=== PATIENT | male | born 1960 | race Caucasian/White ===

== ENCOUNTER 2019-02-18 07:50 | Day surgery (SDC) | payer BC ==
[2019-02-17 12:22] LABS: BASOPHILS % (AUTO) 0.4 % (0.0-5.0); EOSINOPHILS % (AUTO) 2.1 % (0.0-8.0); HEMATOCRIT 44.4 % (36-48); LYMPHOCYTES % (AUTO) 24.5 % (21.0-51.0); MEAN CORPUSCULAR HEMOGLOBIN 31.5 pg (27.0-33.0); MEAN CORPUSCULAR HGB CONC 34.2 g/dL (32.0-36.0); MEAN CORPUSCULAR VOLUME 91.9 fL (79-99); MONOCYTES % (AUTO) 8.6 % (3.0-13.0); NEUTROPHILS % (AUTO) 64.4 % (40.0-77.0); PLATELET COUNT (AUTO) 223 K/uL (130-400); RED BLOOD CELL COUNT(AUTO) 4.83 MIL/uL (4.00-5.50); RED CELL DISTRIBUTION WIDTH 13.4 % (11.0-15.5); WHITE BLOOD COUNT (AUTO) 10.3 K/uL (4.8-10.8)
[2019-02-17 12:32] LABS: CREATININE 1.4 mg/dL (0.5-1.5); POTASSIUM 5.9 mmol/L (3.5-5.1)
[2019-02-17 12:36] LABS: INR 1.11 (0.85-1.15); PARTIAL THROMBOPLASTIN TIME 27.5 SEC (26.3-35.5); PROTHROMBIN TIME 11.6 SEC (9.6-11.6)
[2019-02-17 12:47] VITALS: BP 102/71
--- NOTE | 2019-02-17 13:53 | NUR ---
LABS INFORMED DR. VILLA OF ABNORMAL POTASSIUM. REPEAT POTASSIUM ON AM OF PROCEDURE.
[2019-02-18] VITALS (12 sets, daily range): BP systolic 92–115; BP diastolic 57–82
[~2019-02-18] VITALS: Ht 177.8 cm; Wt 95.3 kg
[~2019-02-18 07:50] MED LIST: APIX5TAB PO; DRON400T2 PO; LOSA50TA64 PO; METF-446 PO; METO100T14 PO; ROSU20TA31 PO; SPIR50TA5 PO
[2019-02-18] MEDS ORDERED: PROPOFOL 10 MG/ML 20ML VIAL IV ONE (08:41)
[2019-02-18] MEDS ORDERED: ATROPINE SULFATE 0.1 MG/ML 10 ML SYG IVP ONE (08:42)
[2019-02-18] MEDS ORDERED: SUCCINYLCHOLINE 200MG/10ML SYR ONE (08:42)
[2019-02-18] MEDS ORDERED: DULA0.75 SQ (08:58)
== END 2019-02-18 10:15 | disposition home or self-care (01) ==
LOC: DAH 07:50 → EDSEX 11:00
PROVIDERS: ATTEND Internal Medicine Cardiovascular Disease
DX: I48.19 Other persistent atrial fibrillation (principal); I25.10 Atherosclerotic heart disease of native coronary artery without angina pectoris; I10 Essential (primary) hypertension; E11.9 Type 2 diabetes mellitus without complications; E66.9 Obesity, unspecified; Z88.8 Allergy status to other drugs, medicaments and biological substances; Z79.01 Long term (current) use of anticoagulants; Z79.899 Other long term (current) drug therapy; Z68.30 Body mass index [BMI] 30.0-30.9, adult; Z82.49 Family history of ischemic heart disease and other diseases of the circulatory system
CPT/HCPCS: 36415 ×2; 80048; 82948 ×2; 84132; 85025; 85610; 85730; 92960; 93005 ×2; A4215; A4216; A4221; A4222; A4223 ×3; A4606; A4615; A4663; J0330; J0461; J2704; J7030

== ENCOUNTER → 2022-11-05 | Outpatient (CLI) | payer BC ==
[~2022-11-05] MED LIST changes: -DRON400T2 PO; +DRON400T7 PO; +DULA0.75 SQ; -ROSU20TA31 PO; +ROSU20TA73 PO
[2022-11-05 12:32] LABS: CREATININE 1.2 mg/dL (0.5-1.5)
== END | disposition home or self-care (01) ==
LOC: LAB 09:56
PROVIDERS: ATTEND Internal Medicine Cardiovascular Disease
DX: I48.0 Paroxysmal atrial fibrillation (principal)
CPT/HCPCS: 36415; 82565; 84520

== ENCOUNTER → 2022-11-19 | Outpatient (CLI) | payer BC ==
[~2022-11-19] MED LIST changes: +IOHEXOL 350 MG/ML 100ML INFUS..BTL IV ONE
== END | disposition home or self-care (01) ==
LOC: RAH 07:33
PROVIDERS: ATTEND Internal Medicine Cardiovascular Disease
DX: I25.10 Atherosclerotic heart disease of native coronary artery without angina pectoris (principal); I48.0 Paroxysmal atrial fibrillation; I70.0 Atherosclerosis of aorta
CPT/HCPCS: 71275; Q9967

== ENCOUNTER 2022-12-09 06:57 | Observation (INO) | payer BC ==
[2022-11-28 09:34] LABS: BASOPHILS # (AUTO) 0.04 K/uL (0.00-0.20); BASOPHILS % (AUTO) 0.5 % (0.0-5.0); EOSINOPHILS # (AUTO) 0.23 K/uL (0.00-0.70); EOSINOPHILS % (AUTO) 2.8 % (0.0-8.0); HEMATOCRIT 42.8 % (42-54); IMMATURE GRANULOCYTE ABSOLUTE 0.04 K/uL (0-1); LYMPHOCYTES # (AUTO) 2.1 K/uL (1.0-4.8); LYMPHOCYTES % (AUTO) 25.7 % (21.0-51.0); MEAN CORPUSCULAR HEMOGLOBIN 30.4 pg (27.0-33.0); MEAN CORPUSCULAR HGB CONC 32.9 g/dL (32.0-36.0); MEAN CORPUSCULAR VOLUME 92.2 fL (79-99); MONOCYTES # (AUTO) 0.8 K/uL (0.1-1.0); MONOCYTES % (AUTO) 9.6 % (3.0-13.0); NEUTROPHILS # (AUTO) 4.9 K/uL (1.8-7.7); NEUTROPHILS % (AUTO) 60.9 % (40.0-77.0); PLATELET COUNT (AUTO) 207 K/uL (130-400); RED BLOOD CELL COUNT(AUTO) 4.64 MIL/uL (4.50-6.20); RED CELL DISTRIBUTION WIDTH 12.2 % (11.0-15.5); WHITE BLOOD COUNT (AUTO) 8.1 K/uL (4.8-10.8)
[2022-11-28 09:44] LABS: INR 0.96 (0.85-1.15); PROTHROMBIN TIME 11.2 SEC (9.6-11.6)
[2022-11-28 09:45] LABS: PARTIAL THROMBOPLASTIN TIME 29.7 SEC (26.3-35.5)
[2022-11-28 09:59] LABS: CREATININE 1.2 mg/dL (0.5-1.5); POTASSIUM 5.2 mmol/L (3.5-5.1)
[2022-11-28 10:18] VITALS: BP 111/71; PULSE 57; RESP 18
[2022-12-09] VITALS (22 sets, daily range): BP systolic 93–133; BP diastolic 66–83; PULSE 57–78; RESP 18–21; O2SAT 95–96
[~2022-12-09] VITALS: Ht 175.3 cm; Wt 93.7 kg
[~2022-12-09 06:57] MED LIST changes: +ASPI-1197 PO; +DAPA5TAB PO; -DULA0.75 SQ; -IOHEXOL 350 MG/ML 100ML INFUS..BTL IV ONE; +LOSA100T59 PO; -LOSA50TA64 PO
[2022-12-09] MEDS ORDERED: 0.9%NACL 1000ML 1,000 ML IV ONE (07:14)
[2022-12-09] MEDS ORDERED: HEPARIN 10,000 UNIT/10ML (1,000 UNIT/ML) VIAL ONE ×2 (07:25→09:12)
[2022-12-09] MEDS ORDERED: LIDOCAINE HCL 400MG/20ML VIAL ONE (07:25)
[2022-12-09] MEDS ORDERED: LIDOCAINE PF 100MG/5ML (2%) SYRINGE 5ML ONE (07:50)
[2022-12-09] MEDS ORDERED: SUCCINYLCHOLINE CHLORIDE 20 MG/ML 10 ML VIAL ONE (07:50)
[2022-12-09] MEDS ORDERED: MIDAZOLAM HCL 1 MG/ML 2ML VIAL ONE (07:51)
[2022-12-09] MEDS ORDERED: PHENYLEPHRINE HCL 10 MG/ML 1ML VIAL IV ONE ×2 (07:51→10:38)
[2022-12-09] MEDS ORDERED: KETAMINE 50MG/ML SYRINGE 50 MG/ML DISP.SYRIN ONE (07:51)
[2022-12-09] MEDS ORDERED: ROCURONIUM 10MG/1ML SYR 10 MG/ML ML ONE (07:51)
[2022-12-09] MEDS ORDERED: PROPOFOL 10 MG/ML 20ML VIAL IV ONE (07:51)
[2022-12-09] MEDS ORDERED: FENTANYL CITRATE PF 50 MCG/1 ML 2ML VIAL ONE (07:52)
[2022-12-09] MEDS ORDERED: ISOPROTERENOL HCL 0.2 MG/ML AMP/VIAL/BAG ONE (10:41)
[2022-12-09] MEDS ORDERED: NEOSTIGMINE 5MG/5ML SYR IV ONE (10:52)
[2022-12-09] MEDS ORDERED: GLYCOPYRROLATE 0.2 MG/ML 5 ML VIAL ONE (10:52)
[2022-12-09] MEDS ORDERED: PROTAMINE SULFATE 10 MG/ML 25ML VIAL IV ONE (10:56)
[2022-12-09] MEDS ORDERED: PANTOPRAZOLE 40 MG TAB DR PO ONE (13:00)
[2022-12-09] MEDS: SUCRALFATE 1 GM TABLET PO SCH ×2 (13:42→18:44)
[2022-12-09] MEDS: METFORMIN HCL 500 MG TABLET PO SCH (20:59)
[2022-12-09] MEDS: APIXABAN 5 MG TABLET PO SCH (20:59)
[2022-12-09] MEDS ORDERED: ASPIRIN 81MG CHEW TAB PO SCH (21:00)
[2022-12-09] MEDS ORDERED: NON-FORMULARY MEDICATION 1 EACH (Metoprolol Tartrate 100 MG) PO SCH (21:00)
[2022-12-09] MEDS ORDERED: NON-FORMULARY MEDICATION 1 EACH (Metformin HCl 1,000 MG) PO SCH (21:00)
[2022-12-09] MEDS ORDERED: ATORVASTATIN 40 MG TABLET PO SCH (21:00)
[2022-12-09] MEDS: METOPROLOL TARTRATE 50 MG TAB PO SCH (21:00)
[2022-12-09] MEDS ORDERED: DAPAGLIFLOZIN PROPANEDIOL PO SCH (21:00)
[2022-12-10] MEDS: SUCRALFATE 1 GM TABLET PO SCH ×2 (00:25→05:47)
[2022-12-10 04:13] VITALS: BP 117/69; PULSE 82; RESP 18
[2022-12-10 07:00] VITALS: BP 111/75; PULSE 86; RESP 18
[2022-12-10] MEDS ORDERED: PANT40TA55 PO (08:18)
[2022-12-10] MEDS ORDERED: SUCR1ORA15 PO (08:18)
[2022-12-10] MEDS: METFORMIN HCL 500 MG TABLET PO SCH (08:52)
[2022-12-10 08:53] VITALS: O2SAT 98
[2022-12-10] MEDS: APIXABAN 5 MG TABLET PO SCH (08:53)
[2022-12-10] MEDS: METOPROLOL TARTRATE 50 MG TAB PO SCH (08:53)
[2022-12-10] MEDS ORDERED: PANTOPRAZOLE 40 MG TAB DR PO SCH (09:00)
[2022-12-10] MEDS ORDERED: SPIRONOLACTONE 25 MG TAB PO SCH (09:00)
[2022-12-10] MEDS ORDERED: NON-FORMULARY MEDICATION 1 EACH (Rosuvastatin Calcium 20 MG) PO SCH (09:00)
[2022-12-10] MEDS ORDERED: NON-FORMULARY MEDICATION 1 EACH (Spironolactone 50 MG) PO SCH (09:00)
[2022-12-10] MEDS ORDERED: LOSARTAN 100 MG TABLET PO SCH (09:00)
== END 2022-12-10 10:53 | disposition home or self-care (01) ==
LOC: DAH 06:57 → 2AH 06:58
PROVIDERS: ADMIT Internal Medicine Cardiovascular Disease; ATTEND Internal Medicine Cardiovascular Disease
DX: I48.0 Paroxysmal atrial fibrillation (principal); I25.5 Ischemic cardiomyopathy; I10 Essential (primary) hypertension; E11.9 Type 2 diabetes mellitus without complications; E29.1 Testicular hypofunction; E66.9 Obesity, unspecified; Z79.899 Other long term (current) drug therapy; Z98.890 Other specified postprocedural states; Z95.1 Presence of aortocoronary bypass graft; Z68.30 Body mass index [BMI] 30.0-30.9, adult; Z86.73 Personal history of transient ischemic attack (TIA), and cerebral infarction without residual deficits
CPT/HCPCS: 80048; 85025; 85610; 85730; 36415; 93005 ×2; 93622; 93623; 93656; 85347 ×5; 82948 ×4; C1894 ×3; C1893; A4215 ×2; C1731; A4649 ×2; C1732; C1730; G0378 ×23; J3010; J3490 ×4; J2710; J0330; J7030; J2720; J2001; J1644 ×3; J2250; J2704; J2371 ×2; A4223 ×3; A4222; A4221; A4663; A4216; A4606

== ENCOUNTER 2024-11-29 09:00 | Day surgery (SDC) | payer BC ==
[2024-11-25 09:51] LABS: IMMATURE GRANULOCYTE ABSOLUTE 0.03 K/uL (0-1); NUCLEATED RED BLOOD CELLS 0.0 % (0.0-0.19); PLATELET COUNT (AUTO) 212 K/uL (130-400); RED BLOOD CELL COUNT(AUTO) 5.23 MIL/uL (4.50-6.20); RED CELL DISTRIBUTION WIDTH 13.2 % (11.0-15.5); WHITE BLOOD COUNT (AUTO) 7.6 K/uL (4.8-10.8)
[2024-11-25 09:56] LABS: CREATININE 1.4 mg/dL (0.5-1.3); GLOMERULAR FILTR. RATE CALC 55.0 mL/min (>90); GLUCOSE,RANDOM 120.0 mg/dL (70-105); SODIUM SERUM 139.0 mmol/L (136-145); UREA NITROGEN, BLOOD 25.0 mg/dL (7-18)
--- NOTE | 2024-11-25 09:59 | EKG ---
[facility] Test Date: 2024-11-25 Test Time: 09:35:04 Pat Name: BRIANNE BERNAL [facility] Room: Gender: M [employer]: [id number] : 1960 Requested By: MARY VILLA Order Number: [id number] Reading MD: Tod Tripp Measurements Intervals [place] Rate: 95 P: 0 CO: 0 QRS: -20 QRSD: 99 T: -31 QT: 406 QTc: 512 Interpretive Statements Atrial fibrillation Inferior infarct, old Prolonged QT interval Compared to ECG 12/10/2022 04:40:37 Prolonged QT interval now present Sinus rhythm no longer present First degree AV block no longer present Myocardial infarct finding still present Electronically Signed On 11-25-2024 13:26:01 CDT by Tod Tripp Please click the below link to view image of tracing.
[2024-11-25 10:00] LABS: INR 1.14 (0.85-1.15)
[2024-11-25 10:16] VITALS: BP 138/88; PULSE 61; RESP 16; TEMP 97.2
--- NOTE | 2024-11-28 10:54 | NUR ---
Re: labs reported bmp results to dr donovan, no new orders received.
[2024-11-29] VITALS (16 sets, daily range): BP systolic 110–130; BP diastolic 69–88; PULSE 64–80; RESP 14–20; TEMP 97.5–97.8
[~2024-11-29] VITALS: Ht 175.3 cm; Wt 92.4 kg
[~2024-11-29 09:00] MED LIST changes: -LOSA100T59 PO; +LOSA50TA64 PO; -ROSU20TA73 PO; +ROSU20TA98 PO; +SEMA2PEN SQ; +SILD100T PO; -SPIR50TA5 PO; +TESTOSTERONE IM; +VITAMIN B12 IM
[2024-11-29 10:11] LABS: CREATININE 1.2 mg/dL (0.5-1.3); GLOMERULAR FILTR. RATE CALC 67.0 mL/min (>90); GLUCOSE,RANDOM 116.0 mg/dL (70-105); SODIUM SERUM 134.0 mmol/L (136-145); UREA NITROGEN, BLOOD 22.0 mg/dL (7-18)
[2024-11-29] MEDS: 0.9%NACL 1000ML 1,000 ML IV ONE (12:16)
[2024-11-29] MEDS ORDERED: SODIUM BICARB 50MEQ 50ML VIAL 50 ML ONE (12:21)
[2024-11-29] MEDS ORDERED: LIDOCAINE HCL 400MG/20ML VIAL ONE (12:21)
[2024-11-29] MEDS ORDERED: HEParin-NS 1,000 UNIT/500 ML 1,000 ML IV ONE (12:21)
[2024-11-29] MEDS ORDERED: MIDAZOLAM HCL 1 MG/ML 2ML VIAL ONE (12:43)
[2024-11-29] MEDS ORDERED: SUCCINYLCHOLINE CHLORIDE 20 MG/ML 10 ML VIAL ONE (12:43)
[2024-11-29] MEDS ORDERED: LIDOCAINE PF 100MG/5ML (2%) SYRINGE 5ML ONE (12:43)
[2024-11-29] MEDS ORDERED: NOREPINEPHRINE BITARTRATE 1 MG/1 ML ML IV ONE (13:34)
[2024-11-29] MEDS ORDERED: SUGAMMADEX SODIUM 200 MG/2 ML VIAL IV ONE (13:39)
[2024-11-29] MEDS ORDERED: ALBUMIN (HUMAN) 5% 250 ML IV ONE (13:40)
[2024-11-29] MEDS ORDERED: PANT40TA55 PO (16:30)
[2024-11-29] MEDS ORDERED: SUCR1TAB2 PO (16:30)
[2024-11-29] MEDS: DEXTROSE 50%-WATER 50 ML DISP.SYRIN IV ONE (17:01)
[2024-11-29] MEDS: SUCRALFATE 1 GM/10 ML PO ONE (17:45)
--- NOTE | 2024-11-29 18:44 | EKG ---
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
--- NOTE | 2024-11-29 19:12 | NUR ---
BOTH PT AND SPOUSE GIVEN VERBAL AND WRITTEN DISCHARGE INSTRUCTIONS IV REMOVED SITE ASYMPTOMATIC.
--- NOTE | 2024-11-29 19:13 | NUR ---
PT TAKEN OUT VIA WHEELCHAIR SPOUSE DRIVING
== END 2024-11-29 19:32 | disposition home or self-care (01) ==
LOC: DAH 09:00
PROVIDERS: ATTEND Internal Medicine Cardiovascular Disease
DX: I48.0 Paroxysmal atrial fibrillation (principal); I48.19 Other persistent atrial fibrillation; I25.10 Atherosclerotic heart disease of native coronary artery without angina pectoris; I10 Essential (primary) hypertension; E11.9 Type 2 diabetes mellitus without complications; E66.9 Obesity, unspecified; I44.0 Atrioventricular block, first degree; Z86.73 Personal history of transient ischemic attack (TIA), and cerebral infarction without residual deficits; Z68.30 Body mass index [BMI] 30.0-30.9, adult; Z98.890 Other specified postprocedural states; Z79.899 Other long term (current) drug therapy
CPT/HCPCS: 80048 ×2; 85025; 85610; 85730; 36415 ×2; 93005 ×2; 93656; 85347 ×6; 82948 ×3; C1894 ×3; C1732 ×3; A4649 ×2; C1760 ×3; C1766; P9045; J3010; J3490 ×5; J0330; J7030; J7070; J2003; J2720; J1644 ×3; J2250; J2704; J2371; A4215; A4222; A4221; A4663; A4216; A4606; A4223 ×3